=== PATIENT | female | born 1965 | race American Indian/Alaskan Native ===

== ENCOUNTER 2017-05-17 22:47 | Emergency (ER) | payer MEDICAID ==
[2017-05-17 23:50] VITALS: BP 159/99
[2017-05-18 00:23] LABS: Basophils % (Auto) 0.1 % (0.0-1.8); Eosinophils % (Auto) 1.3 % (0.0-4.3); Hematocrit 32.2 % (30.3-42.9); Hemoglobin 10.1 gm/dl (10.1-14.3); Mean Corpuscular HGB Conc 32 % (30-34); Mean Corpuscular Volume 79 fl (79-97); Platelet Count 393 K/mm3 (140-440); Red Blood Count 4.09 M/mm3 (3.65-5.03); Red Cell Distribution Width 19.1 % (13.2-15.2); White Blood Count 7.2 K/mm3 (4.5-11.0)
[2017-05-18 00:27] LABS: Mean Corpuscular Hemoglobin 25 pg (28-32)
[2017-05-18 00:34] LABS: Anion Gap 16 mmol/L; Blood Urea Nitrogen 9 mg/dL (7-17); Calcium 8.6 mg/dL (8.4-10.2); Carbon Dioxide 25 mmol/L (22-30); Chloride 106.2 mmol/L (98-107); Glucose 102 mg/dL (65-100); Potassium 3.9 mmol/L (3.6-5.0); Sodium 143 mmol/L (137-145)
[2017-05-18 00:40] LABS: Bilirubin,Urine NEG (Negative); Blood,Urine NEG (Negative); Ketones,Urine NEG (Negative); Leukocyte Esterase,Urine NEG (Negative); Mucus,Urine FEW /HPF; Nitrite,Urine NEG (Negative); Protein,Urine <15 mg/dL mg/dL (Negative); Urobilinogen,Urine < 2.0 mg/dL (<2.0)
[2017-05-18 00:43] LABS: INR 0.91 (0.87-1.13); Partial Thromboplastin Time 29.3 Sec. (24.2-36.6)
[2017-05-18 01:26] LABS: Erythrocyte Sedimentation Rate 45 mm/Hr (0-20)
== END 2017-05-18 01:25 | disposition left against medical advice (07) ==
LOC: ED 22:47
DX: R20.0 Anesthesia of skin (principal); Z88.0 Allergy status to penicillin; I50.9 Heart failure, unspecified; I10 Essential (primary) hypertension; Z53.21 Procedure and treatment not carried out due to patient leaving prior to being seen by health care provider
CPT/HCPCS: 36415; 80048; 81001; 84484; 84703; 85025; 85610; 85652; 85730; 86140; 93005; 93010

== ENCOUNTER 2017-12-14 13:02 | Emergency (ER) | payer MEDICAID ==
[2017-12-14 13:13] VITALS: BP 154/84
== END 2017-12-14 13:58 | disposition left against medical advice (07) ==
LOC: ED 13:02
DX: R42 Dizziness and giddiness (principal); Z53.21 Procedure and treatment not carried out due to patient leaving prior to being seen by health care provider
CPT/HCPCS: 82962; 93005; 93010

== ENCOUNTER 2019-10-06 18:46 | Emergency (ER) | payer MEDICAID | END 2019-10-06 19:04 | disposition left against medical advice (07) | LOC: ED 18:46 | DX: R42 Dizziness and giddiness (principal); Z53.21 Procedure and treatment not carried out due to patient leaving prior to being seen by health care provider ==

== ENCOUNTER 2020-10-22 10:25 | Emergency (ER) | payer MEDICAID, OTHER ==
[2020-10-22 10:40] VITALS: BP 138/91
--- NOTE | 2020-10-22 11:51 | Event Note ---
ED Screening Note Date of service: 10/22/20 Time: 11:48 ED Screening Note: 54-year-old -[place] female presents to the emergency room for right leg swelling and pain. She still states that she did have a fall recently. She also reports multiple bruises on her right lower leg and right upper thigh. Patient does have a history of heart block sickle cell trait hip replacement ankle surgery hypertension prediabetic. This initial assessment/diagnostic orders/clinical plan/treatment(s) is/are subject to change based on patients health status, clinical progression and re- assessment by fellow clinical providers in the ED. Further treatment and workup at subsequent clinical providers discretion. Patient/guardian urged not to elope from the ED as their condition may be serious if not clinically assessed and managed. Initial orders include:
--- NOTE | 2020-10-22 12:31 | XRay Report ---
RIGHT KNEE 2 VIEW(S) INDICATION / CLINICAL INFORMATION: knee pain COMPARISON: None available. FINDINGS: BONES / JOINT(S): No acute fracture or subluxation. Mild tricompartmental degenerative arthrosis. The re is superior and inferior patellar enthesopathy. Slightly abnormal appearance of the tibial tubercl e may be related to chronic [place]-Schlatter disease. SOFT TISSUES: No significant abnormality. ADDITIONAL FINDINGS: None. Signer Name: Tariq Jaramillo MD Signed: 10/22/2020 12:27 PM Workstation Name: [id number]
--- NOTE | 2020-10-22 13:04 | Emergency Department Report ---
ED Lower Extremity HPI - General Chief Complaint: Extremity Injury, Lower Stated Complaint: LEG SWELLING/BRUISING Time Seen by Provider: 10/22/20 11:32 Source: patient Mode of arrival: Ambulatory Limitations: No Limitations - History of Present Illness Initial Comments: The patient was evaluated in the emergency department for symptoms described in the history of present illness. He/she was evaluated in the context of the global COVID-19 pandemic, which necessitated consideration that the patient might be at risk for infection with the virus that causes COVID-19. Institutional protocols and algorithms that pertain to the evaluation of patients at risk for COVID-19 are in a state of rapid change based on information released by regulatory bodies including the CDC and federal and state organizations. These policies and algorithms were followed during the patient's care in the emergency department. Please note that these policies, procedures and recommendations changed on a rapid basis. 55-year-old -[place] female presents to the emergency room for bruising and right leg swelling times a few days. Patient reports that she had a fall approximately 5 to 6 days ago as she was pushing one of her handicapped sons in the wheelchair. Patient denies hitting her head or back to states that her right knee has become swollen and a little pain. She is reports the pain is at the back of the knee as well. Patient also states that she has noticed some bruising that she has had in several places on her leg and not sure of its from the fall or she is having some symptoms of blood disorder. Patient does have a past medical history of hypertension and prediabetic reports that she has history of congestive heart failure heart blockage sickle cell trait. She has had a hip replacement of her left left ankle surgery. Patient denies being on any blood thinners at this time. Denies any shortness of breath or chest pain - Related Data Home Medications Medication Instructions Recorded Confirmed Last Taken Penicillin Vk [Veetids] 500 mg PO QID 08/30/13 08/30/13 Unknown Allergies Allergy/AdvReac Type Severity Reaction Status Date / Time No Known Allergies Allergy Unverified 10/22/20 10:36 ED Review of Systems ROS: Stated complaint: LEG SWELLING/BRUISING Other details as noted in HPI Comment: All other systems reviewed and negative ED Past Medical Hx - Past Medical History Hx Hypertension: Yes Hx Congestive Heart Failure: Yes Hx Diabetes: Yes (pre-diabetes) Additional medical history: Heart Blockage. Sickle cell trait. Anemia - Surgical History Additional Surgical History: hip replacement , ankle surgery. C-Sec x 3 - Social History Smoking Status: Never Smoker Substance Use Type: None - Medications Home Medications: Home Medications Medication Instructions Recorded Confirmed Last Taken Type Penicillin Vk [Veetids] 500 mg PO QID 08/30/13 08/30/13 Unknown History ED Physical Exam - General Limitations: No Limitations General appearance: alert, in no apparent distress - Head Head exam: Present: atraumatic, normocephalic - Eye Eye exam: Present: normal appearance - ENT ENT exam: Present: mucous membranes moist - Neck Neck exam: Present: normal inspection, full ROM - Respiratory Respiratory exam: Absent: accessory muscle use - Cardiovascular Cardiovascular Exam: Present: regular rate, normal rhythm. Absent: systolic murmur, diastolic murmur, rubs, gallop - Expanded Lower Extremity Exam Right Knee exam: Present: full ROM, swelling, ecchymosis (Several bruises ). Absent: abrasion, deformity, crepidus, erythema Lower Leg exam: Present: full ROM. Absent: tenderness, palpable cord, Darshan's sign Ankle exam: Absent: dislocation, erythema, anterior draw sign Foot/Toe exam: Present: normal inspection, full ROM Neuro vascular tendon exam: Present: no vascular compromise Gait: Positive: observed and normal - Back Exam Back exam: Present: full ROM - Neurological Exam Neurological exam: Present: alert, oriented X3, normal gait - Psychiatric Psychiatric exam: Present: normal affect, normal mood - Skin Skin exam: Present: warm, dry, intact, normal color. Absent: rash ED Course Vital Signs 10/22/20 10:38 Temperature 98.1 F Pulse Rate 83 Respiratory 18 Rate Blood Pressure 138/91 O2 Sat by Pulse 99 Oximetry ED Lower Extremity MDM - Radiology Data Radiology results: report reviewed Patient: RITA HASSAN MR#: [id number] : 1965 Acct:[id number] Age/Sex: 55 / F ADM Date: 10/22/20 Loc: ED Attending Dr: Ordering Physician: ADELE JENNINGS Date of Service: 10/22/20 Procedure(s): XR knee 1-2V RT Accession Number(s): [id number] cc: [place] Fluoro Time In Minutes: RIGHT KNEE 2 VIEW(S) INDICATION / CLINICAL INFORMATION: knee pain COMPARISON: None available. FINDINGS: BONES / JOINT(S): No acute fracture or subluxation. Mild tricompartmental degenerative arthrosis. There is superior and inferior patellar enthesopathy. Slightly abnormal appearance of the tibial tubercle may be related to chronic [place]-Schlatter disease. SOFT TISSUES: No significant abnormality. ADDITIONAL FINDINGS: None. Signer Name: Fco Jaramillo MD Signed: 10/22/2020 12:27 PM Workstation Name: [id number] Transcribed By: SS Dictated By: FCO JARAMILLO Electronically Authenticated By: FCO JARAMILLO Signed Date/Time: 10/22/201226 Ultrasound of right lower extremity shows no DVT but does show a possible Maravilla's cyst. DD/ 25 TD/TT: - Medical Decision Making 55-year-old -[place] female presents to the emergency room for bruising and right leg swelling times a few days. Patient reports that she had a fall approximately 5 to 6 days ago as she was pushing one of her handicapped sons in the wheelchair. Patient denies hitting her head or back to states that her right knee has become swollen and a little pain. She is reports the pain is at the back of the knee as well. Patient also states that she has noticed some bruising that she has had in several places on her leg and not sure of its from the fall or she is having some symptoms of blood disorder. Patient does have a past medical history of hypertension and prediabetic reports that she has history of congestive heart failure heart blockage sickle cell trait. She has had a hip replacement of her left left ankle surgery. Patient denies being on any blood thinners at this time. Denies any shortness of breath or chest pain Right lower extremity ultrasound is negative for any DVT does show a possible Maravilla's cyst. X-ray of knee she has tried compartment degenerative changes no fracture or subluxation or dislocation. Recommend patient to take ibuprofen or Tylenol and to follow-up with her primary care provider. Critical care attestation.: If time is entered above; I have spent that time in minutes in the direct care of this critically ill patient, excluding procedure time. ED Disposition Clinical Impression: Pain of right lower extremity, Maravilla's cyst of knee Disposition: DC- TO HOME OR SELFCARE Is pt being admited?: No Does the pt Need Aspirin: No Condition: Stable Instructions: Maravilla Cyst Additional Instructions: X-ray is negative for any fracture dislocation or subluxation. Ultrasound is negative for any DVT. It does show that you have probably Maravilla's cyst. I recommend Tylenol or ibuprofen for pain management. Follow-up with your primary care provider has any further concerns. Referrals: PRIMARY CAREMD [Primary Care Provider] - 3-5 Days TAMELA MOONEY MD [Staff Physician] - 3-5 Days
--- NOTE | 2020-10-22 13:21 | Vascular Lab Report ---
DUPLEX DOPPLER LOWER EXTREMITY VEINS, RIGHT INDICATION / CLINICAL INFORMATION: right leg sweling with pain. TECHNIQUE: Duplex doppler imaging was performed through the veins of the right lower extremity using venous comp ression and other maneuvers. COMPARISON: None available. FINDINGS: RIGHT COMMON FEMORAL VEIN: Negative. RIGHT FEMORAL VEIN: Negative. RIGHT POPLITEAL VEIN: Negative. RIGHT CALF VEINS: Negative. ADDITIONAL FINDINGS: 4.3 x 1.7 x 1.3 cm hypoechoic collection in the right popliteal fossa. IMPRESSION: 1. No sonographic evidence for DVT in the right lower extremity. 2. 4.3 cm fluid collection in the popliteal fossa likely reflects a Maravilla cyst. Signer Name: David Senior MD Signed: 10/22/2020 1:15 PM Workstation Name: [id number]
== END 2020-10-22 13:13 | disposition home or self-care (01) ==
LOC: ED 10:25
DX: M71.21 Synovial cyst of popliteal space [Baker], right knee (principal); M79.661 Pain in right lower leg; I11.0 Hypertensive heart disease with heart failure; I50.9 Heart failure, unspecified; E11.9 Type 2 diabetes mellitus without complications; Z98.890 Other specified postprocedural states; Z88.8 Allergy status to other drugs, medicaments and biological substances